=== PATIENT | male | born 1960 | race Caucasian/White ===

== ENCOUNTER 2020-08-01 09:50 | Day surgery (SDC) | payer BC, SELFPAY ==
[2020-08-01] VITALS (10 sets, daily range): BP systolic 120–144; BP diastolic 78–103; PULSE 70–113; RESP 12–20; TEMP 36.3–37.3; O2SAT 95–100
[2020-08-01] MEDS: NITROGLYCERIN SL 0.4 MG TABLET SUBLINGUAL (10:36)
[2020-08-01] MEDS: SODIUM CHLORIDE 0.9% IV 1,000 ML 999 ML IV CONT (10:36)
[2020-08-01] MEDS: HYOSCYAMINE SULFATE 0.125 MG TABLET PO (10:39)
[2020-08-01] MEDS: GLUCAGON FOR INJ 1 MG VIAL IV PUSH (10:39)
--- NOTE | 2020-08-01 10:41 | ED.GENADULT ---
HPI - General Adult General Chief complaint: Unspecified Stated complaint: FB GI Time Seen by Provider: 08/01/20 10:06 Source: patient Mode of arrival: ambulatory Limitations: no limitations History of Present Illness HPI narrative: Patient is a 60-year-old male who presents to emergency department for evaluation of concern for esophageal foreign body patient notes last night he was eating dinner described as chicken and kale when he felt as though the food became lodged and has since had difficulty tolerating liquids including his saliva. Patient denies similar occurrence in the past or any pain or recent illness. On arrival patient is in the room in no distress. Patient is not taken anything for his symptoms Related Data Home Medications Medication Instructions Recorded Confirmed acamprosate 333 mg PO BID 08/01/20 08/01/20 lisinopril 08/01/20 meloxicam 08/01/20 naltrexone mg 08/01/20 simvastatin mg 08/01/20 Allergies Allergy/AdvReac Type Severity Reaction Status Date / Time No Known Allergies Allergy Verified 08/01/20 10:01 Review of Systems Review of Systems: All systems reviewed & are unremarkable except as noted in HPI and below PMFSH Past Medical History Medical History (Updated 08/01/20 @ 11:55 by Camilo Martin PA-C) Essential hypertension Hyperlipidemia Social History Social History (Updated 08/01/20 @ 10:42 by Camilo Martin PA-C) Alcohol intake: current Gender identity (if verbalized by the patient): Male Exam Narrative: Exam Narrative: GENERAL: Well-appearing, well-nourished, and in no acute distress. HEAD: Normocephalic, atraumatic. EYES: PERRLA and EOMI. ENT: Nares clear, no rhinorrhea or epistaxis. Mucous membranes moist. CHEST: Clear to auscultation. No respiratory distress. No wheezes rales or rhonchi HEART: Regular rate and rhythm. No murmur heard. Normal peripheral pulses. ABDOMEN: Soft, nontender, nondistended EXTREMITIES: Normal range of motion. No edema. SKIN: Warm, dry, no rash. NEURO: No focal deficits. Alert and oriented x3. PSYCH: Normal mood and affect. Course Course Emergency Course: Patient in the room no distress aware of case findings treatment plan diagnosis attempts were made to medically help pass the bolus were unable to do so patient will be at this time taken to the GI lab for upper endoscopy by Dr. Pierre Consultations Consultation #1: Spoke with Dr. Pierre who will take the patient to the GI Lab Date: 08/01/20 Time: 11:54 Vital Signs Vital signs: Vital Signs Temperature 97.3 F L 08/01/20 09:57 Pulse Rate 112 H 08/01/20 09:57 Respiratory Rate 18 08/01/20 09:57 Blood Pressure 143/103 H 08/01/20 09:57 Pulse Oximetry 97 08/01/20 09:57 Temperature 97.3 F L 08/01/20 09:57 Pulse Rate 100 08/01/20 11:15 Respiratory Rate 15 08/01/20 11:15 Blood Pressure 140/89 08/01/20 11:15 Pulse Oximetry 95 08/01/20 11:15 Medical Decision Making [facility] Narrative Medical decision making narrative: Patient in the room hemodynamically stable ABCs intact afebrile nontoxic-appearing evaluated in the emergency department patient will be taken to the GI lab at this time for upper endoscopy Vital Signs Vital Signs: Vital Signs Temperature 97.3 F L 08/01/20 09:57 Pulse Rate 112 H 08/01/20 09:57 Respiratory Rate 18 08/01/20 09:57 Blood Pressure 143/103 H 08/01/20 09:57 Pulse Oximetry 97 08/01/20 09:57 Temperature 97.3 F L 08/01/20 09:57 Pulse Rate 100 08/01/20 11:15 Respiratory Rate 15 08/01/20 11:15 Blood Pressure 140/89 08/01/20 11:15 Pulse Oximetry 95 08/01/20 11:15 Lab Data Result diagrams: 08/01/20 10:31 08/01/20 10:31 Labs: Lab Results 08/01/20 08/01/20 Range/Units 10:31 10:31 WBC 8.1 (4.5-10.0) K/mm3 RBC 5.04 (4.6-6.20) M/mm3 Hgb 16.0 (14.0-18.0) g/dL Hct 46.4 (42.0-52.0) % MCV 92.1 (80-100) fl MCH 31.7 (26-34) pg
[2020-08-01 10:43] LABS: Basophils Percent Auto 0.4 % (0.2-1.2); Eosinophils Percent Auto 0.5 % (0-4.4); Hematocrit 46.4 % (42.0-52.0); Immature Granulocyte Absolute 0.03 K/mm3 (0.00-0.031); Immature Granulocyte Percent A 0.4 % (0-0.5); Lymphocytes Absolute Auto 0.96 K/mm3 (0.9-3.2); Lymphocytes Percent Auto 11.9 % (18.3-44.2); Mean Corpuscular HGB Conc 34.5 g/dl (32-36); Mean Corpuscular Hemoglobin 31.7 pg (26-34); Mean Corpuscular Volume 92.1 fl (80-100); Mean Platelet Volume 9.2 fl (7.4-10.4); Monocytes Absolute Auto 0.6 K/mm3 (0.1-0.6); Monocytes Percent Auto 7.7 % (2.6-8.5); Neutrophils Absolute Auto 6.4 K/mm3 (1.3-6.7); Neutrophils Percent Auto 79.1 % (45.5-73.1); Platelet Count Result 195 k/mm3 (150-375); Red Blood Count 5.04 M/mm3 (4.6-6.20); Red Cell Distribution Width 13.2 % (11.5-14.5); White Blood Count 8.1 K/mm3 (4.5-10.0)
[2020-08-01 10:53] LABS: Anion Gap 10 mmol/L (8-16); Blood Urea Nitrogen 21 mg/dL (9-20); Calcium 9.9 mg/dL (8.4-10.2); Carbon Dioxide 27 mmol/L (22-30); Chloride 101 mmol/L (98-107); Estimated CRCL calculation 110 ml/min; Estimated Glomerular Filt Rate > 60; Glucose 101 mg/dL (75-110); Potassium 4.1 mmol/L (3.4-5.0); Sodium 138 mmol/L (137-145)
[2020-08-01] MEDS: LACTATED RINGERS 1,000 ML 150 ML IV CONT (12:39)
--- NOTE | 2020-08-01 13:18 | WPDANESEPPF ---
Anes - Initial Pre Proc Eval Procedure: Operation Date: 08/01/20 13:15 Proposed Procedures p Esophagogastroduodenoscopy - Benedict Vann MD Date/Time: 08/01/20 13:18 Surgeon: Benedict Vann MD Pre Op Diagnosis: FB GI Patient Data Age: 60 Gender: M Height: 5 ft 9 in Weight: 89.3 kg Last Vital Signs Temp 99.1 F 08/01/20 12:42 Pulse 98 08/01/20 12:42 Resp 17 08/01/20 12:42 BP 140/85 08/01/20 12:42 Pulse Ox 100 08/01/20 12:42 Allergies Allergy/AdvReac Type Severity Reaction Status Date / Time No Known Allergies Allergy Verified 08/01/20 12:40 Home Medications Medication Instructions Recorded Confirmed Type acamprosate 333 mg PO BID 08/01/20 08/01/20 History lisinopril 20 mg PO DAILY 08/01/20 08/01/20 History meloxicam 15 mg PO DAILY 08/01/20 08/01/20 History naltrexone 50 mg PO DAILY 08/01/20 08/01/20 History simvastatin 20 mg PO DAILY 08/01/20 08/01/20 History Laboratory Tests 08/01/20 08/01/20 10:31 10:31 WBC 8.1 K/mm3 K/mm3 (4.5-10.0) RBC 5.04 M/mm3 M/mm3 (4.6-6.20) Hgb 16.0 g/dL g/dL (14.0-18.0) Hct 46.4 % % (42.0-52.0) MCV 92.1 fl fl (80-100) MCH 31.7 pg pg (26-34) MCHC 34.5 g/dl g/dl (32-36) RDW 13.2 % % (11.5-14.5) Plt Count 195 k/mm3 k/mm3 (150-375) MPV 9.2 fl fl (7.4-10.4) Immature Gran % (Auto) 0.4 % % (0-0.5) Neut % (Auto) 79.1 % H % (45.5-73.1) Lymph % (Auto) 11.9 % L % (18.3-44.2) [place] % (Auto) 7.7 % % (2.6-8.5) Eos % (Auto) 0.5 % % (0-4.4) Baso % (Auto) 0.4 % % (0.2-1.2) Lymph # (Auto) 0.96 K/mm3 K/mm3 (0.9-3.2) [place] # (Auto) 0.6 K/mm3 K/mm3 (0.1-0.6) Eos # (Auto) 0.0 K/mm3 K/mm3 (0-0.3) Baso # (Auto) 0.0 K/mm3 K/mm3 (0.0-0.1) Abs Immat Gran (auto) 0.03 K/mm3 K/mm3 (0.00-0.031) Absolute Neuts (auto) 6.4 K/mm3 K/mm3 (1.3-6.7) Absolute Nucleated RBC 0.0 K/mm3 K/mm3 (0.0-0.012) Nucleated RBC % 0.0 % % (0.0-0.2) Sodium 138 mmol/L mmol/L (137-145) Potassium 4.1 mmol/L mmol/L (3.4-5.0) Chloride 101 mmol/L mmol/L (98-107) Carbon Dioxide 27 mmol/L mmol/L (22-30) Anion Gap 10 mmol/L mmol/L (8-16) BUN 21 mg/dL H mg/dL (9-20) Creatinine 0.60 mg/dL L mg/dL (0.7-1.3) Estim Creat Clear Calc 110 ml/min ml/min Estimated GFR > 60 (59 - ) Glucose 101 mg/dL mg/dL (75-110) Calcium 9.9 mg/dL mg/dL (8.4-10.2) Patient hx anesthesia problems: none Family hx anesthesia problems: none [facility] Past Medical History Medical History (Updated 08/01/20 @ 11:55 by Camilo Martin PA-C) Essential hypertension Hyperlipidemia Social History Social History (Updated 08/01/20 @ 10:42 by Camilo Martin PA-C) Alcohol intake: current Gender identity (if verbalized by the patient): Male Anes - Eval Final PreProcedure Day of Procedure 01/06/21 13:18 Patient weight: overweight Heart: regular rate and rhythm Lungs: clear to auscultation Airway: Mallampati scale class III Neurological: alert and oriented Last oral intake: >/= 8 hours ASA classification: II Emergent: yes Anesthetic plan: proceed Anesthesia type and monitoring: general GIVS and standard monitoring Informed Consent: The patient's anesthetic plan and its attendant risks and benefits were discussed with the patient/family/POA. Questions were solicited and answers provided to the satisfaction of the patient/family/POA.
--- NOTE | 2020-08-01 13:35 | PM.HPGS ---
History of Present Illness History of Present Illness Consent: Risks, benefits, and alternatives have been discussed and questions answered. Patient agrees to proceed with procedure. Chief complaint: FB GI Narrative: Elpidio Delgadillo is a 60 year old male here for food bolus after eating dinner last night and came to ER, never had EGD. Had episodes of dysphagia before, he is not taking ppi Review of Systems Constitutional: Constitutional: Denies headache(s) and Denies weakness Eyes: Eyes: Denies blurry vision ENT: Reports Normal hearing present, Denies headache(s) and Denies neck pain Cardiovascular: Cardiovascular: Denies chest pain and Denies dyspnea Respiratory: Respiratory: Denies dyspnea Gastrointestinal: Gastrointestinal: Reports no additional gastrointestinal complaints Genitourinary: Genitourinary: Denies dysuria Musculoskeletal: Musculoskeletal: Denies neck pain Integumentary/Breasts: Skin/Breast: Denies dry skin Neurologic: Reports Normal hearing present, Denies headache(s) and Denies weakness Psychiatric: Psychiatric: Denies anxiety Endocrine: Endocrine: Denies change in body appearance Hematologic/Lymphatic: Hematologic/Lymphatic: Denies easy bleeding Allergic/Immunologic: Allergic/Immunologic: Denies urticaria PMFSH Past Medical History Medical History (Updated 08/01/20 @ 11:55 by Camilo Martin PA-C) Essential hypertension Hyperlipidemia Social History Social History (Updated 08/01/20 @ 10:42 by Camilo Martin PA-C) Alcohol intake: current Gender identity (if verbalized by the patient): Male Meds Home Medications and Allergies Home Medications Medication Instructions Recorded Confirmed Type acamprosate 333 mg PO BID 08/01/20 08/01/20 History lisinopril 20 mg PO DAILY 08/01/20 08/01/20 History meloxicam 15 mg PO DAILY 08/01/20 08/01/20 History naltrexone 50 mg PO DAILY 08/01/20 08/01/20 History simvastatin 20 mg PO DAILY 08/01/20 08/01/20 History Allergies Allergy/AdvReac Type Severity Reaction Status Date / Time No Known Allergies Allergy Verified 08/01/20 12:40 Vital Signs Vital Signs - 24 hr 08/01/20 09:57 08/01/20 10:06 08/01/20 10:36 Temperature 97.3 F L Pulse Rate 112 H 108 H 113 H Respiratory Rate 18 12 Blood Pressure 143/103 H 144/84 H Pulse Oximetry 97 96 01/06/21 11:15 08/01/20 12:02 08/01/20 12:29 Temperature Pulse Rate 100 105 H 99 Respiratory Rate 15 16 15 Blood Pressure 140/89 127/94 H 139/93 H Pulse Oximetry 95 96 97 08/01/20 12:42 Temperature 99.1 F Pulse Rate 98 Respiratory Rate 17 Blood Pressure 140/85 Pulse Oximetry 100 Exam Const: General: comfortable and no acute distress HENMT: General nose exam: Normal nares present Eyes: General: appearance normal, both eyes and all related structures Neck: Neck: no JVD Resp: Auscultation: clear to auscultation bilaterally Cardio: Rate: regular rate Rhythm: regular rhythm GI: Inspection: non-distended GI Palp: Yes Soft to palpation Skin: General skin exam: normal color Neuro: General: gait normal Speech: normal speech Extrem: General: normal to inspection Psych: Mental Status: mental status grossly normal Assessment and Plan Assessment and plan (1) Esophageal foreign body: Code(s): T18.108A - Unspecified foreign body in esophagus causing other injury, initial encounter Status: Acute Assessment and Plan: will proceed with urgent EGD, medical treatment in ER did not work, still unable to swallow
== END 2020-08-01 15:41 | disposition home or self-care (01) ==
LOC: ANHED 12:01 → ANHENDO 12:04
PROVIDERS: Emergency Medicine Emergency Medical Services; Emergency Provider Emergency Medicine; PCP Family Medicine Adolescent Medicine; Visit Provider Internal Medicine Gastroenterology
PROC: 0DJ08ZZ Inspection of Upper Intestinal Tract, Via Natural or Artificial Opening Endoscopic (ICD-10-PCS; CPT 43235; principal; 2020-08-01 13:15)
DX: T18.128A Food in esophagus causing other injury, initial encounter (principal); R13.19 Other dysphagia; K22.2 Esophageal obstruction; K44.9 Diaphragmatic hernia without obstruction or gangrene; K29.80 Duodenitis without bleeding; I10 Essential (primary) hypertension; E78.5 Hyperlipidemia, unspecified
CPT/HCPCS: 43247; 43239; 36415; 80048; 85025; 88305; 96361; 96374; 99285; A9270; J1610; J2001; J2405; J2704; J7030; J7120

== ENCOUNTER → 2020-08-21 10:28 | Outpatient (CLI) | payer BC, SELFPAY ==
--- NOTE | ~2020-08-21 | XR_ITS ---
EXAMINATION: XR cervical spine 4-5V EXAM DATE: 08/21/2020 10:58 INDICATION: Neck pain, prior cervical fusion. TECHNIQUE: Cervical spine frontal, lateral, lateral swimmers, and open-mouth odontoid projections. There is no prior study for comparison. FINDINGS: Cervical fusion C5-6 and 6-7 with interbody devices. There is moderate disc disease at C4- 5, mild at C3-4. Moderate sized anterior endplate osteophytes C3-4 and 4-5. There is advanced upper c ervical facet arthropathy and lower cervical uncovertebral joint disease. Lung apices are clear. Prev ertebral soft tissue and pre-dens space are within normal limits. There is 2 mm anterolisthesis C3 on C4. The odontoid process is intact. The lateral masses of C1 line up with C2. IMPRESSION: 1. Cervical interbody fusion C5-7. 2. Advanced cervical arthropathy. Reviewed, dictated and finalized at location A. R SCHEDULE CLERK
== END ==
PROVIDERS: PCP Family Medicine Adolescent Medicine; Visit Provider Family Medicine Adolescent Medicine
DX: M54.2 Cervicalgia (principal); Z98.1 Arthrodesis status
CPT/HCPCS: 72050

== ENCOUNTER → 2020-09-14 02:22 | Outpatient (CLI) | payer BC, SELFPAY ==
[2020-09-14 21:58] LABS: SARS-CoV-2 RNA PCR Negative
== END ==
PROVIDERS: PCP Family Medicine Adolescent Medicine; Visit Provider Internal Medicine Gastroenterology
DX: Z01.812 Encounter for preprocedural laboratory examination (principal); Z20.822 Contact with and (suspected) exposure to COVID-19
CPT/HCPCS: C9803; U0003; U0005

== ENCOUNTER 2020-09-17 00:28 | Day surgery (SDC) | payer BC, SELFPAY ==
[2020-08-27 08:50] VITALS: BMI 28.1
--- NOTE | 2020-09-14 09:28 | P.PNAN_ITS ---
Anes - Initial Pre Proc Eval Procedure: Operation Date: 09/17/20 07:30 Proposed Procedures p Esophagogastroduodenoscopy - Benedict Vann MD Date/Time: 09/14/20 09:28 Surgeon: Benedict Vann MD Pre Op Diagnosis: Dysphagia Patient Data Age: 60 Gender: M Height: 1.73 m Weight: 84 kg Allergies Allergy/AdvReac Type Severity Reaction Status Date / Time No Known Allergies Allergy Verified 09/17/20 06:15 Home Medications Medication Instructions Recorded Confirmed Type lisinopril 20 mg PO DAILY 08/01/20 08/27/20 History meloxicam 15 mg PO DAILY 08/01/20 08/27/20 History omeprazole 40 mg capsule,delayed 40 mg PO DAILY #30 cap 08/01/20 08/27/20 Rx release simvastatin 20 mg PO DAILY 08/01/20 08/27/20 History Patient hx anesthesia problems: none Family hx anesthesia problems: none [facility] Past Medical History Medical History (Updated 08/01/20 @ 11:55 by Camilo Martin PA-C) Essential hypertension Hyperlipidemia Surgical History Surgical History (Updated 09/14/20 @ 09:29 by Iker Doss DO) History of fusion of cervical spine C6-7 History of total knee replacement Social History Social History (Updated 08/01/20 @ 10:42 by Camilo Martin PA-C) Smoking packs per day: 1 Smoking cigarettes per day: 20.0 Years smoked: 10 Smoking pack-years: 10.00 Tobacco type: cigarettes Alcohol intake: current Drinks per week: 12 Alcohol use details: BEER Substance use: never Substance use type: does not use Living arrangements: with family Gender identity (if verbalized by the patient): Male Spiritual care concerns: No Anes - Eval Final PreProcedure Day of Procedure 09/14/20 09:28 Patient weight: overweight Heart: regular rate and rhythm Lungs: clear to auscultation and normal air movement Airway: Mallampati scale class II Neurological: alert and oriented Last oral intake: >/= 8 hours ASA classification: III Emergent: no Anesthetic plan: proceed Anesthesia type and monitoring: general GIVS and standard monitoring Informed Consent: The patient's anesthetic plan and its attendant risks and benefits were discussed with the patient/family/POA. Questions were solicited and answers provided to the satisfaction of the patient/family/POA.
[2020-09-17 06:16] VITALS: BP 130/87; PULSE 86; RESP 18; TEMP 36.6; O2SAT 99
[2020-09-17] MEDS: LACTATED RINGERS 1,000 ML 150 ML IV CONT (06:24)
--- NOTE | 2020-09-17 07:30 | PM.HPGS ---
History of Present Illness History of Present Illness Consent: Risks, benefits, and alternatives have been discussed and questions answered. Patient agrees to proceed with procedure. Chief complaint: Dysphagia Narrative: Elpidio Delgadillo is a 60 year old male with food bolus that required EGD last month, now on omeprazole daily Review of Systems Constitutional: Constitutional: Denies headache(s) and Denies weakness Eyes: Eyes: Denies blurry vision ENT: Reports Normal hearing present, Denies headache(s) and Denies neck pain Cardiovascular: Cardiovascular: Denies chest pain and Denies dyspnea Respiratory: Respiratory: Denies dyspnea Gastrointestinal: Gastrointestinal: Reports no additional gastrointestinal complaints Genitourinary: Genitourinary: Denies dysuria Musculoskeletal: Musculoskeletal: Denies neck pain Integumentary/Breasts: Skin/Breast: Denies dry skin Neurologic: Reports Normal hearing present, Denies headache(s) and Denies weakness Psychiatric: Psychiatric: Denies anxiety Endocrine: Endocrine: Denies change in body appearance Hematologic/Lymphatic: Hematologic/Lymphatic: Denies easy bleeding Allergic/Immunologic: Allergic/Immunologic: Denies urticaria PMFSH Past Medical History Medical History (Updated 09/17/20 @ 07:30 by Benedict Vann MD) Dysphagia Essential hypertension GERD (gastroesophageal reflux disease) Hyperlipidemia Surgical History Surgical History (Updated 09/14/20 @ 09:29 by Iker Doss DO) History of fusion of cervical spine C6-7 History of total knee replacement Social History Social History (Updated 08/01/20 @ 10:42 by Camilo Martin PA-C) Smoking packs per day: 1 Smoking cigarettes per day: 20.0 Years smoked: 10 Smoking pack-years: 10.00 Tobacco type: cigarettes Alcohol intake: current Drinks per week: 12 Alcohol use details: BEER Substance use: never Substance use type: does not use Living arrangements: with family Gender identity (if verbalized by the patient): Male Spiritual care concerns: No Meds Home Medications and Allergies Home Medications Medication Instructions Recorded Confirmed Type lisinopril 20 mg PO DAILY 08/01/20 08/27/20 History meloxicam 15 mg PO DAILY 08/01/20 08/27/20 History omeprazole 40 mg capsule,delayed 40 mg PO DAILY #30 cap 08/01/20 08/27/20 Rx release simvastatin 20 mg PO DAILY 08/01/20 08/27/20 History Allergies Allergy/AdvReac Type Severity Reaction Status Date / Time No Known Allergies Allergy Verified 09/17/20 06:15 Vital Signs Vital Signs - 24 hr 09/17/20 06:16 Temperature 97.8 F Pulse Rate 86 Respiratory Rate 18 Blood Pressure 130/87 Pulse Oximetry 99 Exam Const: General: comfortable and no acute distress HENMT: General nose exam: Normal nares present Eyes: General: appearance normal, both eyes and all related structures Neck: Neck: no JVD Resp: Auscultation: clear to auscultation bilaterally Cardio: Rate: regular rate Rhythm: regular rhythm GI: Inspection: non-distended GI Palp: Yes Soft to palpation Skin: General skin exam: normal color Neuro: General: gait normal Speech: normal speech Extrem: General: normal to inspection Psych: Mental Status: mental status grossly normal Assessment and Plan Assessment and plan (1) Dysphagia: Code(s): R13.10 - Dysphagia, unspecified Status: Acute Assessment and Plan: better now, assess with egd and consider dilation based on findings (2) GERD (gastroesophageal reflux disease): Code(s): K21.9 - Gastro-esophageal reflux disease without esophagitis Status: Acute
[2020-09-17 07:43] VITALS: BP 129/93; PULSE 91; RESP 13; O2SAT 97
[2020-09-17 07:53] VITALS: BP 126/89; PULSE 79; RESP 12; O2SAT 98
[2020-09-17 08:03] VITALS: BP 129/92; PULSE 80; RESP 21; O2SAT 97
== END 2020-09-17 08:11 | disposition home or self-care (01) ==
PROVIDERS: PCP Family Medicine Adolescent Medicine; Visit Provider Internal Medicine Gastroenterology
PROC: 0DJ08ZZ Inspection of Upper Intestinal Tract, Via Natural or Artificial Opening Endoscopic (ICD-10-PCS; CPT 43235; principal; 2020-09-17 07:30)
DX: R13.10 Dysphagia, unspecified (principal); K22.2 Esophageal obstruction; K21.00 Gastro-esophageal reflux disease with esophagitis, without bleeding; K44.9 Diaphragmatic hernia without obstruction or gangrene; I10 Essential (primary) hypertension; E78.5 Hyperlipidemia, unspecified; F17.210 Nicotine dependence, cigarettes, uncomplicated; Z98.1 Arthrodesis status; Z96.659 Presence of unspecified artificial knee joint
CPT/HCPCS: 43249; 43239; 88305; C1726; J2001; J2704; J7120

== ENCOUNTER 2021-02-17 17:33 | Emergency (ER) | payer BC, SELFPAY ==
--- NOTE | ~2021-02-17 | XR_ITS ---
EXAMINATION: XR finger 5th LT min 2V EXAM DATE: 02/17/2021 20:36 INDICATION: Laceration to distal end of 5th digit, no prior injury. TECHNIQUE: Left 5th finger frontal, lateral and oblique projections obtained and reviewed. There i s no prior study for comparison. FINDINGS: There are no acute left 5th finger fractures or dislocations identified. There is no subcu taneous gas. Probable laceration identified along the distal phalanx. There are no radiopaque forei gn bodies. IMPRESSION: 1. Left 5th finger exam without acute osseous findings. 2. Laceration. Reviewed, dictated and finalized at location A.
[2021-02-17 17:51] VITALS: BP 144/78; PULSE 73; RESP 20; TEMP 36.8; O2SAT 100
--- NOTE | 2021-02-17 20:35 | ED.WOUNDLAC ---
HPI - Wound/Laceration General Chief Complaint: Wound/Laceration Stated Complaint: CUT PINKIE FINGER Time Seen by Provider: 02/17/21 19:59 Source: patient Mode of arrival: ambulatory Limitations: no limitations History of Present Illness HPI narrative: This is a 60 year old male that presents to the ER for laceration to the left 5th finger sustained just prior to arrival. Reports he accidentally cut the finger using pruning raegan. Reports bleeding and pain to the area. He is not up to date on tetanus. Denies decreased ROM or numbness. Related Data Home Medications Medication Instructions Recorded Confirmed lisinopril 20 mg PO DAILY 08/01/20 08/27/20 meloxicam 15 mg PO DAILY 08/01/20 08/27/20 simvastatin 20 mg PO DAILY 08/01/20 08/27/20 Allergies Allergy/AdvReac Type Severity Reaction Status Date / Time No Known Allergies Allergy Verified 09/17/20 06:15 Review of Systems Review of Systems: Narrative: CONSTITUTIONAL: Denies fever SKIN: Reports laceration MUSCULOSKELETAL: Denies joint pain, or myalgia. NEUROLOGIC: Denies numbness All systems reviewed & are unremarkable except as noted in HPI and below PMFSH Past Medical History Medical History (Updated 02/17/21 @ 22:20 by Rosemary Myles PA-C) Dysphagia Essential hypertension GERD (gastroesophageal reflux disease) Hyperlipidemia Surgical History Surgical History (Updated 09/14/20 @ 09:29 by Iker Doss DO) History of fusion of cervical spine C6-7 History of total knee replacement Social History Social History (Updated 08/01/20 @ 10:42 by Camilo Martin PA-C) Smoking packs per day: 1 Smoking cigarettes per day: 20.0 Years smoked: 10 Smoking pack-years: 10.00 Tobacco type: cigarettes Alcohol intake: current Drinks per week: 12 Alcohol use details: BEER Substance use: never Substance use type: does not use Gender identity (if verbalized by the patient): Male Spiritual care concerns: No Exam Narrative: Exam Narrative: GENERAL: Well-appearing, well-nourished, and in no acute distress. HEAD: Normocephalic, atraumatic. EYES: EOMI. EXTREMITIES: Normal range of motion. No edema. Left 5th finger with 1.5cm flap laceration into subcutaneous tissue to the distal phalanx SKIN: Warm, dry, no rash. NEURO: No focal deficits. Alert and oriented x3. PSYCH: Normal mood and affect Course Vital Signs Vital signs: Vital Signs Temperature 98.2 F 02/17/21 17:51 Pulse Rate 73 02/17/21 17:51 Respiratory Rate 20 02/17/21 17:51 Blood Pressure 144/78 H 02/17/21 17:51 Pulse Oximetry 100 02/17/21 17:51 Temperature 98.1 F 02/17/21 21:40 Pulse Rate 81 02/17/21 21:40 Respiratory Rate 19 02/17/21 21:40 Blood Pressure 139/86 02/17/21 21:40 Pulse Oximetry 100 02/17/21 21:40 Procedures Laceration Laceration 1: Date: 02/17/21 Time: 22:18 Site: hand Side (If applicable): left Size (cm): 1.5 Description: flap Depth: simple, single layer Local Anesthetic: lidocaine 1% Amount of anesthesia used (mL): 3 Pre-repair: irrigated ====== Skin Level ====== Skin layer closed with: nylon Size (cm): 5-0 Number of sutures: 2 Technique: simple, interrupted ====== Subcutaneous Layer ====== ====== Muscle Layer ====== ====== Tendon Layer ====== MDM - Wound/Laceration MDM Narrative Medical decision making narrative: Patient presents to the emergency department for laceration to the left fifth finger sustained just prior to arrival. Left fifth finger x-rays without acute osseous abnormalities. Patient's wound was irrigated and closed with sutures. Patient was updated on tetanus. He was educated on wound care. He is to follow-up with primary care doctor. He was given warnings to return to the ER Imaging Data Radiologist's impression: ITS Impressions Finger X-Ray 02/17/21 20:57 I
[2021-02-17 21:40] VITALS: BP 139/86; PULSE 81; RESP 19; TEMP 36.7; O2SAT 100
[2021-02-17] MEDS: TETANUS,DIPHTHERIA,AC PERTUSSIS ADULT (0.5 ML) BOOSTRIX IM (21:50)
== END 2021-02-17 22:46 | disposition home or self-care (01) ==
PROVIDERS: Emergency Provider Emergency Medicine; PCP Family Medicine Adolescent Medicine
DX: S61.217A Laceration without foreign body of left little finger without damage to nail, initial encounter (principal); I10 Essential (primary) hypertension; K21.9 Gastro-esophageal reflux disease without esophagitis; E78.5 Hyperlipidemia, unspecified; Z23 Encounter for immunization; Z98.1 Arthrodesis status; Z96.659 Presence of unspecified artificial knee joint; F17.210 Nicotine dependence, cigarettes, uncomplicated; W27.1XXA Contact with garden tool, initial encounter; Y93.H2 Activity, gardening and landscaping
CPT/HCPCS: 12001; 73140; 90471; 90715; 99283

== ENCOUNTER → 2022-06-10 08:41 | Outpatient (CLI) | payer OTHER, SELFPAY ==
--- NOTE | ~2022-06-10 | XR_ITS ---
EXAMINATION: XR chest 2V DATE: 06/10/2022 08:58 INDICATION: Contact with and suspected exposure to asbestos. TECHNIQUE: Frontal and lateral views of the chest were obtained on 3 radiographs. COMPARISON: None. FINDINGS: The chest demonstrates clear lungs without pneumonia, pleural effusion, or pneumothorax. Th e heart size is normal. There is mild chronic anterior wedging of multiple midthoracic vertebral bodi es. IMPRESSION: 1. No acute cardiopulmonary disease. Reviewed, dictated and finalized at location A. T ATTENDANT
== END ==
PROVIDERS: PCP Family Medicine Adolescent Medicine; Visit Provider Physician Assistant
DX: Z77.090 Contact with and (suspected) exposure to asbestos (principal)
CPT/HCPCS: 71046

== ENCOUNTER 2023-07-08 07:34 | Outpatient (CLI) | payer OTHER, SELFPAY ==
--- NOTE | 2023-07-08 07:38 | ECHO_ITS ---
Patient Info Name: Elpidio Delgadillo Age: 63 years : 1960 Gender: Male Ht: 69 in Wt: 186 lbs BSA: 2.04 m2 HR: 71 bpm BP: 110 / 70 mmHg Technical Quality: Good Exam Date: 07/08/2023 7:45 AM Exam Location: Echo Lab Patient Status: Outpatient Admit Date: 07/08/2023 Staff Ordering Physician: Jennifer Sharp APRN Attending Provider: Jennifer Sharp APRN Referring Physician: Aron HOWELL; Exam Type: CA echo transthoracic complete Study Info Indications I10 - Essential (primary) hypertension I35.8 - Other nonrheumatic aortic valve disorders Summary 1. Left ventricular chamber dimension is normal. 2. Left ventricular systolic function is normal, estimated at 60-65%. 3. There is mild concentric increased left ventricular wall thickness. 4. The left ventricular diastolic function is normal. 5. E/e' 7 is not elevated. 6. Left atrial chamber dimension is mildly enlarged. 7. Right atrial chamber dimension is mildly enlarged. 8. There is moderate aortic valve sclerosis. 9. There is moderate aortic valve stenosis with a peak velocity of 281 cm/s, mean gradient of 13 mmHg, and aortic valve area of 1.2 cm2. 10. There is mild mitral valve regurgitation. 11. There is trace pulmonic regurgitation. Left Ventricle E/e' 7 is not elevated. Left ventricular chamber dimension is normal. Left ventricular systolic function is normal, estimated at 60-65%. There is mild concentric increased left ventricular wall thickness. The left ventricular diastolic function is normal. Right Ventricle Right ventricular systolic function is tati and with normal TAPSE 2.2 cm. Right ventricular chamber dimension is normal. Left Atria Left atrial chamber dimension is mildly enlarged. Right Atria Right atrial chamber dimension is mildly enlarged. Aortic Valve The aortic valve is trileaflet. There is moderate aortic valve sclerosis. There is moderate aortic valve stenosis with a peak velocity of 281 cm/s, mean gradient of 13 mmHg, and aortic valve area of 1.2 cm2. There is no aortic valve regurgitation. Pulmonic Valve There is trace pulmonic regurgitation. Mitral Valve There is no mitral valve stenosis. There is mild mitral valve regurgitation. Tricuspid Valve There is no tricuspid valve regurgitation. Pericardium/Pleural There is no pericardial effusion. Inferior Vena Cava Normal inferior vena cava with >50% collapse upon inspiration consistent with normal right atrial pressure, 5 mmHg. Aorta The aortic root size at the sinus of Valsalva is normal. Left Ventricular Outflow Tract Name Value Normal LVOT 2D LVOT Diameter 2.2 cm LVOT Doppler LVOT Peak Gradient 3 mmHg LVOT Mean Gradient 1 mmHg LVOT VTI 18 cm LVOT VTI/AV VTI Ratio 0.3 LVOT Stroke Volume 66 ml LVOT CO 4.6 l/min LVOT CI 2.3 l/min/m2 Pulmonic Valve Name Value Normal
== END 2023-07-08 07:35 | disposition home or self-care (01) ==
PROVIDERS: PCP Family Medicine Adolescent Medicine; Visit Provider Nurse Practitioner Family
DX: I08.3 Combined rheumatic disorders of mitral, aortic and tricuspid valves (principal)
CPT/HCPCS: 93306

== ENCOUNTER 2023-08-06 08:43 | Observation (INO) | payer OTHER, SELFPAY ==
[2023-08-06] VITALS (76 sets, daily range): BP systolic 100–130; BP diastolic 65–105; PULSE 64–142; RESP 12–24; TEMP 36.6–36.9; O2SAT 92–100; BMI 26.6
--- NOTE | ~2023-08-06 | CT_ITS ---
EXAMINATION: CTA chest PE protocol DATE: 08/06/2023 10:24 INDICATION: Chest pain, tachycardia, dizziness. Positive d-dimer. TECHNIQUE: Computed tomography angiography (CTA) of the chest was performed with 100 mL Omnipaque-350 intravenous contrast timed to evaluate the pulmonary arteries. Coronal maximum intensity projection 3D-reconstructions were created by the technologist. Automated exposure control and iterative reconst ruction technique were employed. Exam dose: 651.23 mGy-cm total exam DLP. COMPARISON: 06/10/2022 2 view chest FINDINGS: There is diagnostic contrast enhancement of the pulmonary arteries and no evidence of pulmo nary embolism. No thoracic aortic aneurysm or dissection. There is some calcification at the aortic valve. Coronary artery calcification. Heart size is within normal range. No pericardial effusion. No hilar or mediastinal mass lesion or lymphadenopathy. No pleural effusion. Mild bilateral lower lobe atelectasis. No pulmonary consolidation or suspicious pulmonary mass lesion is evident. Normal morphology of the adrenal glands. Severe degenerative disc disease in the lower cervical spine. Diffuse idiopathic skeletal hyperostosi s of the thoracic spine. Degenerative spurring of the lumbar spine. IMPRESSION: No evidence of pulmonary embolism Reviewed, dictated and finalized at Location A. Reviewed, dictated and finalized at location L. GATIONIST
--- NOTE | ~2023-08-06 | XR_ITS ---
XR chest 2V DATE: 08/06/2023 10:27 INDICATION: Chest pain. Dizziness. TECHNIQUE: AP and lateral views COMPARISON: 06/10/2022 2 view chest FINDINGS: Normal heart size. No hilar or mediastinal enlargement. No pulmonary infiltrate or consolid ation, pleural effusion or pulmonary vascular congestion or pneumothorax is detected. Degenerative spurring of the thoracic spine. IMPRESSION: No active cardiopulmonary disease Reviewed, dictated and finalized at location L. FITTER
--- NOTE | ~2023-08-06 | US_ITS ---
EXAMINATION: US carotid duplex BI DATE: 08/07/2023 10:04 INDICATION: Presyncope. Carotid atherosclerosis. TECHNIQUE: Grayscale, color Doppler, and pulsed Doppler images of the cervical carotid arteries were obtained. The degree of vessel stenosis is placed in one of the following categories: normal, <50%, 5 0-69%, >=70% but less than near-occlusion, near-occlusion, or total occlusion. Note that percent sten osis relative to normal distal artery lumen diameter is indirectly measured from velocity measurement s as described by Yao, et al. Radiology 2003; 229:340-346. COMPARISON: None. FINDINGS: RIGHT: The right common carotid artery (CCA) peak systolic velocity (PSV) is 87 cm/s. The right internal car otid artery (ICA) PSV is 94 cm/s. The right ICA end-diastolic velocity (EDV) is 31 cm/s. The right IC A/CCA PSV ratio is 1.1. Grayscale and color Doppler images yield an estimate of <50% diameter reducti on from plaque in the ICA. The external carotid artery (ECA) PSV is 82 cm/s. There is antegrade flow in the right vertebral artery. LEFT: The left CCA PSV is 129 cm/s. The left ICA PSV is 74 cm/s. The left ICA EDV is 28 cm/s. The left ICA/ CCA PSV ratio is 0.6. Grayscale and color Doppler images yield an estimate of <50% diameter reduction from plaque in the ICA. The ECA PSV is 63 cm/s. There is antegrade flow in the left vertebral artery . IMPRESSION: 1. <50% stenosis in the right internal carotid artery. 2. <50% stenosis in the left internal carotid artery. Reviewed, dictated and finalized at location A. EATION MANAGER
--- NOTE | ~2023-08-06 | CT_ITS ---
EXAMINATION: CT brain wo con DATE: 08/06/2023 10:22 INDICATION: Fall. Head injury. Dizziness. Facial injury. TECHNIQUE: Computed tomography (CT) of the head was performed without intravenous contrast. The mA wa s adjusted according to patient size. Iterative reconstruction technique was employed. Exam dose: 68 1.00 mGy-cm total exam DLP. COMPARISON: None FINDINGS: No intracranial mass lesion or hemorrhage or cerebrovascular accident, midline shift or mas s effect. Normal ventricular size. Mild cerebral atherosclerotic calcification. No subdural or epidural hematoma. Minimal posterior left maxillary sinus mucoperiosteal thickening. The included paranasal sinuses and mastoid air cells are otherwise unremarkable. Bilateral nasal plate fractures. No fracture or bone destruction of the cranial vault. IMPRESSION: Bilateral nasal plate fractures; no skull fracture or acute intracranial finding Reviewed, dictated and finalized at Location A. Reviewed, dictated and finalized at location L. CONSULTANT IMPRESSION: Bilateral nasal plate fractures; no skull fracture or acute intrac ranial finding
--- NOTE | ~2023-08-06 | CT_ITS ---
EXAMINATION: CT facial & cervical spine wo DATE: 08/06/2023 10:22 INDICATION: Head injury. TECHNIQUE: Computed tomography (CT) of the maxillofacial region and cervical spine was performed with out intravenous contrast. Automated exposure control and iterative reconstruction technique were empl oyed. The dose-length product was 526.15 mGy-cm. COMPARISON: None FINDINGS: MAXILLOFACIAL CT: There is leftward deviation of the nasal septum. There are fractures of the nasal septum, nasal bones , nasal processes of maxilla. There is mild mucosal thickening in the paranasal sinuses. The orbits a re normal. CERVICAL SPINE CT: There is a 19 x 17 mm subcutaneous mass with fat stranding in the posterior neck, which may be a seba ceous cyst with inflammation or a hematoma. There is 9 degrees dextrocurvature of cervical spine. Jaswant tebral body heights are normal. There is mildly decreased disc height at C3-C4 and moderately decreas ed disc height at C4-C5. There are changes of anterior fusion procedure at C5-C6 with interbody bone graft without bridging bone. There are changes of anterior fusion procedure at C6-C7 with healed brid ging interbody bone graft. The following disc levels are specifically discussed: C2-C3: There is no uncovertebral joint osteoarthritis. There is severe bilateral facet joint osteoart hritis. There is mild right neural foraminal stenosis. There is no central canal stenosis. C3-C4: There is mild right and moderate left uncovertebral joint osteoarthritis. There is severe left facet joint osteoarthritis. There is ankylosis of right facet joint with severe hypertrophy. There i s mild bilateral neural foraminal stenosis. There is mild central canal stenosis. C4-C5: There is severe bilateral uncovertebral joint osteoarthritis. There is severe bilateral facet joint osteoarthritis. There is mild right and moderate left neural foraminal stenosis. There is mild central canal stenosis. C5-C6: There is severe bilateral uncovertebral joint osteoarthritis. There is mild bilateral facet vale int osteoarthritis. There is moderate bilateral neural foraminal stenosis. There is mild central mateo l stenosis. C6-C7: There is moderate bilateral uncovertebral joint hypertrophy. There is mild bilateral facet michi nt osteoarthritis. There is mild right neural foraminal stenosis. There is no central canal stenosis. C7-T1: There is mild bilateral uncovertebral joint osteoarthritis. There is severe bilateral facet vale int osteoarthritis. There is mild bilateral neural foraminal stenosis. There is no central canal sten osis. IMPRESSION: 1. Fractures of the nasal bones, nasal processes of maxilla, and nasal septum. 2. Moderate cervical spondylosis. 3. Anterior fusion procedure at C5-C6 without bridging bone. Anterior fusion procedure at C6-C7 with bridging bone. Reviewed, dictated and finalized at location A. SMITTER ENGINEER IN CHARGE IMPRESSION: 1. Fractures of the nasal bones, nasal processes of maxilla, and nasal septum. 2. Moderate cervical spondylosis. 3. Anterior fusion procedure at C5-C6 without bridging bone. Anterior fusion pr ocedure at C6-C7 with bridging bone.
--- NOTE | 2023-08-06 08:51 | ECG_ITS ---
Measurements Intervals [place] Rate: 139 P: 256 TX: 161 QRS: 59 QRSD: 84 T: 58 QT: 269 QTc: 410 Interpretive Statements ATRIAL TACHYCARDIA/FLUTTER WITH RAPID VENTRICULAR RESPONSE BASELINE WANDER- V5 ABNORMAL ECG NO PREVIOUS ECG AVAILABLE FOR COMPARISON Electronically Signed On 08-06-2023 9:53:04 PRIMARY CARE MD by Patel Richard D.O.
[2023-08-06 09:00] LABS: Basophils Percent Auto 0.5 % (0.2-1.2); Eosinophils Absolute Auto 0.1 K/mm3 (0-0.3); Eosinophils Percent Auto 1.9 % (0-4.4); Hematocrit 44.8 % (42.0-52.0); Hemoglobin 14.5 g/dL (14.0-18.0); Immature Granulocyte Absolute 0.03 K/mm3 (0.00-0.031); Immature Granulocyte Percent A 0.5 % (0-0.5); Lymphocytes Absolute Auto 1.09 K/mm3 (0.9-3.2); Lymphocytes Percent Auto 19.3 % (18.3-44.2); Mean Corpuscular HGB Conc 32.4 g/dl (32-36); Mean Corpuscular Hemoglobin 29.1 pg (26-34); Mean Platelet Volume 9.5 fl (7.4-10.4); Monocytes Absolute Auto 0.4 K/mm3 (0.1-0.6); Monocytes Percent Auto 7.3 % (2.6-8.5); Neutrophils Percent Auto 70.5 % (45.5-73.1); Platelet Count Result 231 k/mm3 (150-375); Red Blood Count 4.98 M/mm3 (4.6-6.20); Red Cell Distribution Width 13.4 % (11.5-14.5); White Blood Count 5.7 K/mm3 (4.5-10.0)
[2023-08-06] MEDS: SODIUM CHLORIDE 0.9% IV 1,000 ML 999 ML IV CONT ×2 (09:02→09:54)
[2023-08-06 09:12] LABS: Alanine Aminotransferase 53 U/L (6-50); Albumin Level 4.4 g/dL (3.5-5.1); Alkaline Phosphatase 63 U/L (38-126); Anion Gap 8 mmol/L (8-16); Aspartate Amino Transferase 50 U/L (17-59); Blood Urea Nitrogen 14 mg/dL (9-20); Calcium 9.5 mg/dL (8.4-10.2); Carbon Dioxide 28 mmol/L (22-30); Chloride 101 mmol/L (98-107); Estimated CRCL calculation 92 ml/min; Estimated Glomerular Filt Rate > 60; Glucose 129 mg/dL (65-110); Potassium 3.9 mmol/L (3.4-5.0); Sodium 137 mmol/L (137-145)
--- NOTE | 2023-08-06 09:38 | PC.NURSE ---
Lab called and labs added onto orders
--- NOTE | 2023-08-06 09:47 | ED.DIZZY ---
HPI - Dizziness General Chief Complaint: Dizziness <VENESSA Sheth Last Filed: 08/06/23 19:10> Stated Complaint: DIZZY,FALL-->NOSEBLEED <VENESSA Sheth Last Filed: 08/06/23 19:10> Time Seen by Provider: 08/06/23 09:01 <VENESSA Sheth Last Filed: 08/06/23 19:10> Source: patient <VENESSA Sheth Last Filed: 08/06/23 19:10> Mode of arrival: ambulatory <VENESSA Sheth Last Filed: 08/06/23 19:10> Limitations: no limitations <VENESSA Sheth Last Filed: 08/06/23 19:10> History of Present Illness HPI Narrative: patient is a 63-year-old male who presents the ED with report of dizziness and head injury. Patient reported having 3 episodes of dizziness this morning, two which were mild and occurring with bending over. These episodes felt more like lightheadedness. He then states he had a more severe episode of dizziness while walking into his kitchen. He states it felt like the room was spinning at that time. He began to fall and attempted to hold onto a chair. He fell down with the chair, hitting his nose and face against a chair. No LOC. Denied syncope. He did sustain an epistaxis after the fall, which has since resolved. Small laceration to bridge of nose. then brought him to the ED. Patient states he developed chest pain after the fall, which has since persisted. Complains of pressure to his left lower chest. Denies difficulty breathing. Denies current dizziness. Denies vision changes, focal weakness or numbness, nausea, vomiting. Patient states he recently had an ECHO performed, unsure why or what the results were. reports he has aortic valve disease. <VENESSA Sheth Last Filed: 08/06/23 19:10> Related Data Home Medications: Home Medications Medication Instructions Recorded Confirmed cholecalciferol (vitamin D3) 25 1,000 unit PO DAILY 08/06/23 08/06/23 mcg (1,000 unit) tablet <Karolyn Osorio PA-C - Last Filed: 08/06/23 19:10> Allergies/Adverse Reactions: Allergies Allergy/AdvReac Type Severity Reaction Status Date / Time Bumble Bee Allergy Intermediate Swelling Uncoded 07/07/23 09:50 <Karolyn Osorio PA-C - Last Filed: 08/06/23 19:10> Review of Systems Review of Systems: CONSTITUTIONAL: Denies fever, chills, or sweats. ENT: See HPI CARDIOVASCULAR: See HPI. RESPIRATORY: Denies cough or dyspnea. GASTROINTESTINAL: Denies abdominal pain, nausea, vomiting MUSCULOSKELETAL: Denies back pain, extremity pain, myalgia. NEUROLOGIC: See HPI <VENESSA Sheth Last Filed: 08/06/23 19:10> All systems reviewed & are unremarkable except as noted in HPI and below <VENESSA Sheth Last Filed: 08/06/23 19:10> [facility] Past Medical History Medical History: Medical History Dysphagia Essential hypertension GERD (gastroesophageal reflux disease) Hyperlipidemia <VENESSA Sheth Last Filed: 08/06/23 19:10> Surgical History Surgical History: Surgical History History of fusion of cervical spine C6-7 History of total knee replacement <VENESSA Sheth Last Filed: 08/06/23 19:10> Family History Family History: Family History Father Acute myocardial infarction from massive [place] Mother Lung cancer Sibling Skin cancer Other Heart disease <VENESSA Sheth Last Filed: 08/06/23 19:10> Social History Social History: Social History Smoking packs per day: 1 Smoking cigarettes per day: 20.0 Years smoked: 10 Smoking pack-years: 10.00 Smoking status: Former smoker Alcohol intake: current Drinks per week: 12 [place]
[2023-08-06 09:49] LABS: Magnesium 1.6 mg/dL (1.6-2.3)
[2023-08-06] MEDS: MECLIZINE HCL 25 MG TABLET PO (09:54)
[2023-08-06 09:56] LABS: INR 1.1; Prothrombin Time 14.3 Seconds (11.1-14.7)
[2023-08-06 09:57] LABS: Partial Thromboplastin Time 28.4 SECONDS (22.3-36.8)
[2023-08-06 10:00] LABS: D Dimer 0.98 ug/mL (<0.48)
[2023-08-06 10:01] LABS: Troponin I < 0.012 ng/mL (0.000-0.034)
[2023-08-06] MEDS: METOPROLOL TARTRATE INJ 5 MG/5 ML VIAL IV PUSH (10:32)
[2023-08-06] MEDS: MAGNESIUM SULF 1 GM/D5W 100 ML 1 GM/100 ML BAG IVPB (10:32)
--- NOTE | 2023-08-06 11:25 | ECG_ITS ---
Measurements Intervals [place] Rate: 85 P: [place]: 0 QRS: 51 QRSD: 87 T: 53 QT: 322 QTc: 384 Interpretive Statements ATRIAL FIBRILLATION WITH NORMAL VENTRICULAR RESPONSE ST ELEVATION IN ANTEROLAT/INF LEADS- PROBABLY EARLY REPOLARIZATION ABNORMAL ECG COMPARED TO ECG 08/06/2023 08:58:37 ATRIAL FIBRILLATION NOW PRESENT Electronically Signed On 08-06-2023 11:52:29 LEAF COVERER by Patel Richard D.O.
[2023-08-06] MEDS: NITROGLYCERIN SL 0.4 MG TABLET SUBLINGUAL (12:13)
[2023-08-06 12:39] LABS: Troponin I < 0.012 ng/mL (0.000-0.034)
[2023-08-06 15:29] LABS: Troponin I < 0.012 ng/mL (0.000-0.034)
--- NOTE | 2023-08-06 17:02 | PM.IMHP ---
H&P: HPI History of Present Illness Date/Time: 08/06/23 17:02 Chief Complaint: patient is a 63-year-old male with a PMHX of, dysphagia, essential HTN, GERD, hyperlipidemia who presented the ED with report of dizziness and fall.? Patient reported having 3 episodes of dizziness this morning, two which were mild and occurring with bending over. Narrative: Pt provides the following HPI. Patient reported having 3 episodes of dizziness this morning, two which were mild and occurring with bending over, and one that resulted with him losing his balance and striking his head against a chair causing injury to his nose. Pt states he was working on putting some rubber sealant in his home windows, while bending and reaching pt states he noticed he got dizzy, describing it as a head pedraza, he reported some visual disturbances during this episode, citing it felt like the room was spinning . He reports he had some nausea and vomiting with the first episode. Pt states he attempted to walk to his kitchen, he states this is when his episode got worse causing him to become off-balanced, pt reports He fell down with the chair, hitting his nose and face against a chair.? No LOC. Denied syncope.? He reports epistaxis after the fall, which has since resolved.?there is a Small laceration to bridge of nose observed. then brought him to the ED. Patient states he developed chest pain after the fall, which has since persisted.? Complains of pressure to his left lower chest.? Denies difficulty breathing. ? Denies current dizziness.? Denies continued vision change, focal weakness or numbness, nausea, vomiting. He denies any drug or alcohol abuse. Review of Systems Review of Systems: All systems reviewed & are unremarkable except as noted in HPI and below PMFSH Past Medical History Medical History Dysphagia Essential hypertension GERD (gastroesophageal reflux disease) Hyperlipidemia Surgical History Surgical History History of fusion of cervical spine C6-7 History of total knee replacement Family History Family History Father Acute myocardial infarction from massive [place] Mother Lung cancer Sibling Skin cancer Other Heart disease Social History Social History Smoking packs per day: 1 Smoking cigarettes per day: 20.0 Years smoked: 10 Smoking pack-years: 10.00 Smoking status: Former smoker Alcohol intake: current Drinks per week: 12 Alcohol use details: BEER Substance use: current Substance use type: marijuana Other substance usage details: Rarely Living arrangements: with family Occupation/Education: retired Gender identity (if verbalized by the patient): Male Spiritual care concerns: No Meds Home Medications and Allergies Home Medications Medication Instructions Recorded Confirmed Type lisinopril 20 mg tablet 20 mg PO DAILY #90 tabs 01/06/23 08/06/23 Rx meloxicam 15 mg tablet 15 mg PO DAILY #90 tabs 04/09/23 08/06/23 Rx omeprazole 40 mg capsule,delayed 40 mg PO DAILY #90 caps 04/09/23 08/06/23 Rx release rosuvastatin 20 mg tablet 20 mg PO DAILY #90 tabs 06/12/23 08/06/23 Rx ezetimibe 10 mg tablet 10 mg PO DAILY #90 tabs 07/28/23 08/06/23 Rx cholecalciferol (vitamin D3) 25 1,000 unit PO DAILY 08/06/23 08/06/23 History mcg (1,000 unit) tablet Allergies Allergy/AdvReac Type Severity Reaction Status Date / Time Bumble Bee Allergy Intermediate Swelling Uncoded 07/07/23 09:50 Vital Signs Vital Signs - 24 hr 08/06/23 08:53 08/06/23 08:56 08/06/23 08:54 Temperature Pulse Rate 140 H 140 H 140 H Respiratory Rate Blood Pressure 126/105 H 123/91 H 130/90 Pulse Oximetry 08/06/23 08:54 08/06/23 08:55 08/06/23 08:56 Temperature Pulse
--- NOTE | 2023-08-06 18:08 | ADMGEN ---
This patient, Elpidio Delgadillo, was admitted to IMU Room 201-01. Patient/family oriented to hospital policies and general routines including ID bracelet, bed and alarms, visiting hours, pain management, procedures, bathroom and other care routines, personal items, smoking policy, room service/diet, and visiting hours. Information on how to activate the Rapid Response Team has been discussed. Patient/Family are encouraged to report perceived risks to care and to ask questions if they do not understand what they are told or what they should do.
--- NOTE | 2023-08-06 18:15 | ECG_ITS ---
Measurements Intervals [place] Rate: 72 P: 55 WI: 193 QRS: 46 QRSD: 88 T: 56 QT: 358 QTc: 393 Interpretive Statements SINUS RHYTHM VOLTAGE CRITERIA FOR LVH ST ELEVATION IN ANTEROLAT/INF LEADS- PROBABLY EARLY REPOLARIZATION BORDERLINE ECG COMPARED TO ECG 08/06/2023 11:40:49 SINUS RHYTHM NOW PRESENT Electronically Signed On 08-06-2023 19:06:23 BENCH PATTERNMAKER METAL by Patel Richard D.O.
[2023-08-06] MEDS: ENOXAPARIN 40 MG/0.4 ML SYRINGE SUB-Q (18:34)
[2023-08-06 19:43] LABS: Cholesterol 134 mg/dL (0-200); HDL Direct 43 mg/dL; Triglycerides 59 mg/dL (<150)
[2023-08-06 19:55] LABS: LDL Cholesterol Direct 78 mg/dL
[2023-08-07] VITALS (11 sets, daily range): BP systolic 110–146; BP diastolic 67–88; PULSE 62–76; RESP 16–20; TEMP 36.9–37.4; O2SAT 97–99
[2023-08-07 01:03] LABS: Troponin I < 0.012 ng/mL (0.000-0.034)
[2023-08-07 05:02] LABS: Basophils Percent Auto 0.4 % (0.2-1.2); Eosinophils Absolute Auto 0.1 K/mm3 (0-0.3); Eosinophils Percent Auto 2.5 % (0-4.4); Hematocrit 41.1 % (42.0-52.0); Hemoglobin 13.1 g/dL (14.0-18.0); Immature Granulocyte Absolute 0.02 K/mm3 (0.00-0.031); Immature Granulocyte Percent A 0.4 % (0-0.5); Lymphocytes Absolute Auto 1.34 K/mm3 (0.9-3.2); Lymphocytes Percent Auto 25.7 % (18.3-44.2); Mean Corpuscular HGB Conc 31.9 g/dl (32-36); Mean Corpuscular Hemoglobin 29.2 pg (26-34); Mean Corpuscular Volume 91.7 fl (80-100); Mean Platelet Volume 9.9 fl (7.4-10.4); Monocytes Absolute Auto 0.5 K/mm3 (0.1-0.6); Neutrophils Absolute Auto 3.2 K/mm3 (1.3-6.7); Platelet Count Result 220 k/mm3 (150-375); Red Blood Count 4.48 M/mm3 (4.6-6.20); Red Cell Distribution Width 13.5 % (11.5-14.5); White Blood Count 5.2 K/mm3 (4.5-10.0)
[2023-08-07 05:12] LABS: Alanine Aminotransferase 40 U/L (6-50); Albumin Level 3.9 g/dL (3.5-5.1); Alkaline Phosphatase 57 U/L (38-126); Anion Gap 7 mmol/L (8-16); Aspartate Amino Transferase 32 U/L (17-59); Bilirubin,Total 0.5 mg/dL (0.2-1.3); Blood Urea Nitrogen 12 mg/dL (9-20); Calcium 9.1 mg/dL (8.4-10.2); Carbon Dioxide 28 mmol/L (22-30); Chloride 104 mmol/L (98-107); Estimated CRCL calculation 124 ml/min; Estimated Glomerular Filt Rate > 60; Glucose 94 mg/dL (65-110); Sodium 139 mmol/L (137-145)
[2023-08-07] MEDS: ROSUVASTATIN 10 MG TABLET 20 MG PO (08:24)
[2023-08-07] MEDS: CHOLECALCIFEROL 1,000 UNITS TABLET 1000 UNITS PO (08:24)
[2023-08-07] MEDS: EZETIMIBE 10 MG TABLET PO (08:24)
[2023-08-07] MEDS: MELOXICAM 7.5 MG TABLET 15 MG PO (08:24)
[2023-08-07] MEDS: lisinopriL 20 MG TABLET PO (08:24)
[2023-08-07] MEDS: PANTOPRAZOLE 40 MG TABLET PO (08:25)
[2023-08-07] MEDS: ASPIRIN 81 MG CHEWABLE TABLET PO (08:25)
--- NOTE | 2023-08-07 13:07 | PM.DS ---
DS: Admitting Diagnosis Discharge Date 08/07/2023 Admitting Diagnosis New onset AFib with RVR DS: Discharge Diagnosis Discharge Diagnosis (1) Fracture of maxilla: Qualifiers: Encounter type: initial encounter Fracture type: closed Laterality: unspecified laterality Qualified Code(s): S02.401A - Maxillary fracture, unspecified side, initial encounter for closed fracture Code(s): S02.401A - Maxillary fracture, unspecified side, initial encounter for closed fracture Status: Acute (2) Dizziness: Code(s): R42 - Dizziness and giddiness Status: Acute (3) Atrial fibrillation: Qualifiers: Atrial fibrillation type: paroxysmal Qualified Code(s): I48.0 - Paroxysmal atrial fibrillation Code(s): I48.91 - Unspecified atrial fibrillation Status: Acute (4) Laceration of nose: Qualifiers: Encounter type: initial encounter Qualified Code(s): S01.21XA - Laceration without foreign body of nose, initial encounter Code(s): S01.21XA - Laceration without foreign body of nose, initial encounter Status: Acute (5) Fracture of nasal bone: Qualifiers: Encounter type: initial encounter Fracture type: closed Qualified Code(s): S02.2XXA - Fracture of nasal bones, initial encounter for closed fracture Code(s): S02.2XXA - Fracture of nasal bones, initial encounter for closed fracture Status: Acute (6) Fracture of nasal septum: Qualifiers: Encounter type: initial encounter Fracture type: closed Qualified Code(s): S02.2XXA - Fracture of nasal bones, initial encounter for closed fracture Code(s): S02.2XXA - Fracture of nasal bones, initial encounter for closed fracture Status: Acute (7) Moderate aortic stenosis: Code(s): I35.0 - Nonrheumatic aortic (valve) stenosis Status: Acute DS: Summary Hospital Course Hospital Course: patient is a 63-year-old male with a PMHX of,? dysphagia, essential HTN, GERD, hyperlipidemia who presented the ED with report of dizziness and fall.? Patient reported having 3 episodes of dizziness this morning, two which were mild and occurring with bending over. Narrative: Pt provides the following HPI. ?Patient reported having 3 episodes of dizziness this morning, two which were mild and occurring with bending over, and one that resulted with him losing his balance and striking his head against a chair causing injury to his nose. Pt states he was working on putting some rubber sealant in his home windows, while bending and reaching pt states he noticed he got dizzy, describing it as a head pedraza, he reported some visual disturbances during this episode, citing it felt like the room was spinning . He reports he had some nausea and vomiting with the first episode. Pt states he attempted to walk to his kitchen, he states this is when his episode got worse causing him to become off-balanced, pt reports He fell down with the chair, hitting his nose and face against a chair.? No LOC. Denied syncope.? He reports epistaxis after the fall, which has since resolved.?there is a? Small laceration to bridge of nose observed.? then brought him to the ED in the emergency room patient noted to be in AFib with a rapid ventricular rate patient going to metoprolol IV and converted back to sinus rhythm cardiology was consultedl. Patient does have a nasal septum and ridge fracture from the fall which patient will follow-up with ENT as an outpatient. Patient seen by Cardiology no need for any anticoagulation patient going home on metoprolol 12.5 twice a day. Patient will follow-up with the primary care physician and Cardiology as an outpatient in 1 week Time Spent with Patient Time attestation: Total time spent providing and/or coordinating discharge services: Exam Narrative: GENERAL: Well appearing, well-nourished, non-toxic, in no acute distress. HEAD: Normocephalic, atraumatic. EYES: PERRL/EOMI, conjun
--- NOTE | 2023-08-07 14:09 | PM.CNCAR ---
Assessment and Plan Assessment and plan (1) Paroxysmal atrial fibrillation: Code(s): I48.0 - Paroxysmal atrial fibrillation Status: Acute Assessment and Plan: Documented new transient diagnosis of atrial fibrillation asymptomatic heart rate reasonably controlled converted to sinus rhythm spontaneously maintain subsequently. CHADS2 Vasc score 1 for hypertension. Aspirin 81 mg daily acceptable. Once he turns 64 explained in detail systemic anticoagulation advised as his CHADS2 Vasc score will then be 2 as he would be a good further elevated risk for embolic stroke related to atrial fibrillation and/or atrial flutter. Patient verbalized understanding and agreed with plan of care. All questions answered patient and his 's satisfaction. We discussed management options with medications, aspirin versus systemic anticoagulation, bleeding risk and other complications. We discussed concern for bradycardia and or recurrence of atrial fibrillation/flutter in the future in general. As such will initiate metoprolol tartrate 12.5 mg twice daily as tolerated to help reduce recurrence risk. Patient verbalized understanding. Outpatient mold maker plaster advised and follow-up with me in the office within the next 4 weeks. Notify the office with any concerns. Ambulate with caution. Patient has maintained sinus rhythm and is asymptomatic in this regard. His arrhythmias were not the primary explanation for his presentation as he clearly describes a vertigo sensation causing his fall without loss of consciousness. At presentation he was feeling rather well and was noted be in atrial flutter with RVR (2) Paroxysmal atrial flutter: Code(s): I48.92 - Unspecified atrial flutter Status: Acute Assessment and Plan: Initial Atrial flutter RVR 2:1 AVB been atrial fibrillation now sinus rhythm. As above, aspirin 81 mg daily, metoprolol tartrate 12.5 mg twice daily. Patient counseled regarding bleeding risk with aspirin and in particular risk for GI complications with concomitant meloxicam. He does not take his medication concomitant monitor black or tarry stools and bright red blood. Prefer to minimize other NSAIDs if possible. (3) Hypertension: Code(s): I10 - Essential (primary) hypertension Status: Acute Assessment and Plan: Continue lisinopril 20 mg daily. BP reasonably controlled. Patient was not orthostatic as documented. (4) Aortic stenosis: Code(s): I35.0 - Nonrheumatic aortic (valve) stenosis Status: Acute Assessment and Plan: Otob-hp-[id number] severity of aortic stenosis asymptomatic. Exam suggest more mild calculated aortic valve area 1.2 centimeters squared with peak velocity 2.8 with mean gradient suggestive of mild. Clinical observation moving 4. Discussed natural history of progression and associated symptoms in the need for ongoing discussion an echocardiogram as appropriate moving for. Patient verbalized understanding. All questions answered to his satisfaction. (5) Vertigo: Code(s): R42 - Dizziness and giddiness Status: Acute Assessment and Plan: As above, defer to primary service. Symptoms resolved at this time. He is aware risk for recurrence. He is to remain hydrated nonetheless rise slowly from seated position to avoid risk for falls and injuries. Follow-up with primary care physician in this regard. Extensive workup including carotid Dopplers which were unremarkable for significant or hemodynamically significant stenosis, CT angiogram of the chest without infiltrate or pulmonary embolism a chest x-ray unremarkable, head CT without intracerebral hemorrhage or acute stroke. Defer further evaluation management per primary service. History of Present Illness History of Present Illness Consult date/time: Date of service: 08/07/23 14:09 Requesting physician: Tony Robert MD Consult reason: atrial fibrillation Reason For Visit: cp,dizziness,new ons
== END 2023-08-07 14:15 | disposition home or self-care (01) ==
LOC: ANHED 09:16 → ANHIMU 15:08
PROVIDERS: Emergency Medicine; Nurse Practitioner; Admitting Provider Internal Medicine; Emergency Provider Physician Assistant; PCP Family Medicine Adolescent Medicine; Visit Provider Internal Medicine
DX: S02.2XXA Fracture of nasal bones, initial encounter for closed fracture (principal); S02.401A Maxillary fracture, unspecified side, initial encounter for closed fracture; W18.39XA Other fall on same level, initial encounter; Y92.000 Kitchen of unspecified non-institutional (private) residence as the place of occurrence of the external cause; S01.21XA Laceration without foreign body of nose, initial encounter; R42 Dizziness and giddiness; I35.0 Nonrheumatic aortic (valve) stenosis; I48.92 Unspecified atrial flutter; I48.91 Unspecified atrial fibrillation; R07.9 Chest pain, unspecified; R00.0 Tachycardia, unspecified; I10 Essential (primary) hypertension; R79.1 Abnormal coagulation profile; K21.9 Gastro-esophageal reflux disease without esophagitis; E78.5 Hyperlipidemia, unspecified; Z87.891 Personal history of nicotine dependence; F12.90 Cannabis use, unspecified, uncomplicated; F10.90 Alcohol use, unspecified, uncomplicated; Z79.899 Other long term (current) drug therapy
CPT/HCPCS: 36415; 70450; 70486; 71046; 71275; 72125; 80053; 80061; 83735; 84484; 85025; 85380; 85610; 85730; 93005; 93880; 96361; 96365; 96372; 96375; 99285; A9270; G0378; J1650; J3475; J7030; Q9967

== ENCOUNTER 2024-11-09 00:43 | Day surgery (SDC) | payer MEDICARE, SELFPAY ==
[2024-11-01 13:47] VITALS: BMI 26.6
--- OUTSIDE RECORDS SUMMARY | 2024-11-09 00:46 | XMS_ITS | Clinical Summary ---
Author Organization [facility] [address] [facility] [address] Address [address] [place] [address] Care Team Providers Care Pc Tech Name Role Phone Festus Diego MD Primary Care Prov ider Allergies No known active allergies Medications ezetimibe (ZETIA) 10 mg tablet Take 1 tablet (10 mg total) by mouth daily 07/28/2023 Active lisinopriL (PRINIVIL,ZESTR IL) 20 mg tablet Take 1 tablet (20 mg total) by mouth daily 12/15/2015 Active omeprazole (PriLOSEC) 40 mg capsule Take 1 capsule (40 mg total) by mouth daily 05/30/2023 Active meloxicam (MOBIC) 15 mg tablet Take 1 tablet (15 mg total) by mouth as needed 06/20/2023 Active rosuvastatin (CRESTOR) 20 mg tablet Take 1 tablet (20 mg total) by mouth daily 06/12/2023 Active metoprolol tartrate (LOPRESSOR) 25 mg immediate release tablet Take 1/2 (one-half) tablet by mouth twice daily 90 tablet 3 08/02/2024 Active apixaban (ELIQUIS) 5 mg tablet Take 1 tablet (5 mg total) by mouth 2 (two) times a day 180 tablet 3 08/25/2024 Active Active Problems Problem Noted Date Diagnosed Date Anticoagulation management encounter 06/30/2024 Primary hypertension 11/13/2023 Paroxysmal atrial fibrillation 11/13/2023 Mixed hyperlipidemia 11/13/2023 Encounters Date Type Department Care Team Description 08/23/2024 Telephone [facility] Cardiology [address] [place] [address] Livia Chan MD from Last 3 Months Surgical History Surgery Date Site/Laterality Comments REPLACEMENT TOTAL KNEE Left NECK SURGERY fusion KNEE ARTHROSCOPY W/ LATERAL RELEASE JOINT REPLACEMENT Medical History Medical History Date Comments Hypertension Heart murmur Hyperlipidemia Arthritis Family History Medical History Relation Name Comments Heart attack Father Stephan Heart disease Father Stephan Hypertension Father Stephan Cancer Mother [place] Obesity Mother [place] Relation Name Status Comments Brother Alive Father Stephan Alive Mother [place] Alive Sister Alive Social History Tobacco Use Types Packs/Day Years Used Date Smoking Tobacco: Never Smokeless Tobacco: Never Sex and Gender Information Value Date Recorded Sex Assigned at Not on file Legal Sex Male 10:32 PM ENGRAVER COPPERPLATE Gender Identity Male 06/23/2024 6:56 AM ENGRAVER COPPERPLATE Sexual Orientation Straight 06/23/2024 6: 56 AM ENGRAVER COPPERPLATE Obstetrics History Last Filed Vital Signs Vital Sign Reading Time Taken Comments Blood Pressure 108/68 06/30/2024 9:16 AM ENGRAVER COPPERPLATE Pulse 74 06/30/2024 9:16 AM ENGRAVER COPPERPLATE Temperature - - Respiratory Rate - - Oxygen Saturation 99% 06/30/2024 9:16 AM ENGRAVER COPPERPLATE Inhaled Oxygen Concentration - - Weight 84.8 kg (187 lb) 06/30/2024 9:16 AM ENGRAVER COPPERPLATE Height 175.3 cm (5' 9 ) 06/30/2024 9:16 AM ENGRAVER COPPERPLATE Body Mass Index 27.62 06/30/2024 9:16 AM ENGRAVER COPPERPLATE Plan of Treatment Health Maintenance Due Date Last Done Comments Colon Cancer Screening-Colonoscopy 1959 Depression Screening 1959 Fall Risk Assessment 1959 Hepatitis C Screening 1959 Prostate Cancer Screening-PSA 1959 Hepatitis B Screening 1977 Pneumococcal vaccine 65+ (1 of 1 - PCV) 2009 Covid-19 Vaccine (2023-2 5 season) 2024 04/18/2023, 04/02/2022, 10/23/2021, Additional history exists Influenza Vaccine (#1) 2024 3, 04/02/2022, 08/19/2021, Additional history exists Well Visit 65+ 2024 DTaP/Tdap/Td Vaccine (2 - Td or Tdap) 02/17/2031 02/17/2021 Zoster Vaccine Completed 04/10/2018, 02/09/2018 Insurance [employer] MEDICARE Care Teams Pc Tech Relationship Specialty Start Date End Date Festus Diego MD [address] [place] [address] PCP - General Family Medicine 08/07/23
--- OUTSIDE RECORDS SUMMARY | 2024-11-09 00:46 | XMS_ITS | CONTINUITY OF CARE DOCUMENT ---
Author Name santos graham Address Unknown Organization [facility] Address [address] [place] [address] Phone [phone] Care Team Providers Care Hospice Clinical Supervisor Name Role Phone santos graham Unavailable Unavailable
--- OUTSIDE RECORDS SUMMARY | 2024-11-09 00:46 | XMS_ITS | Clinical Summary ---
Author Organization [facility] Address [address] [place] [address] Phone Care Team Providers Care Sharepoint Specialist Name Role Phone Festus Diego MD Primary Care Provider [phone] Allergies No known active allergies Medications acamprosate (CAMPRAL) 333 mg Tablet, Delayed Release (E.C.) Take 666 mg by mouth 3 times daily . 6 Active lisinopril (PRINIVIL) 20 mg tablet 6 Active simvastatin (ZOCOR) 20 mg tablet 20 mg daily . 6 Active multivitamin (DAILY-BRYANT) tablet Take 1 Tablet by mouth daily. Active naproxen (NAPROSYN) 500 mg tablet 7 Active fluocinolone acetonide oil (DERMOTIC) 0.01 % Drops 7 Active hydrocortisone- acetic acid (VOSOL-HC) 1-2 % Drops 7 Active amoxicillin (AMOXIL) 500 mg capsule Take 2 capsules by mouth 1 hour prior to procedure and 1 capsule 6 hours after procedure. 3 Capsule 2 7 Active Active Problems No known active problems Immunizations Immunization Administration Dates Next Due Influenza Seasonal Unspecified Formulation IM Family History Medical History Relation Name Comments Cancer Other Heart Disease Other Relation Name Status Comments Other Social History Tobacco Use Types Packs/Day Years Used Date Smoking Tobacco: Former Cigarettes 0 07/27/1972 - 07/27/1987 Smokeless Tobacco: Never Alcohol Use Standard Drinks/Week Comments Yes 29 (1 standard drink = 0.6 oz pu re alcohol) Sex and Gender Information Value Date Recorded Sex Assigned at Not on file Legal Sex Male 8:49 AM CDT Gender Identity Not on file Sexual Orientation Not on file Last Filed Vital Signs Vital Sign Reading Time Taken Comments Blood Pressure 124/75 03/24/2016 11:31 AM CDT Pulse 70 03/24/2016 11:31 AM CDT Temperature 36.3 C (97.3 F) 01/16/2016 5:18 AM CDT Respiratory Rate 16 01/16/2016 5:18 AM CDT Oxygen Saturation 99% 01/16/2016 5:18 AM CDT Inhaled Oxygen Concentration - - Weight 79.4 kg (175 lb) 01/19/2017 3:47 PM CDT Height 175.3 cm (5' 9 ) 01/19/2017 3:47 PM CDT Body Mass Index 25.84 01/19/2017 3:47 PM CDT Plan of Treatment Health Maintenance Due Date Last Done Comments DTAP/TDAP/TD VACCINES (1 - Tdap) 1978 COLORECTAL SCREENING 2004 Colorectal Cancer Screening 2004 FIT-DNA Q 3 years 2004 FIT/FOBT Q 1 year 2004 Flex Sig/CT Colonography Q 5 years 2004 PNEUMOCOCCAL VACCINE 50+ YEARS (1 of 1 - PCV) 06/05/20 09 ZOSTER VACCINE (1 of 2) 2009 INFLUENZA VACCINE (#1) 2024 2015 RSV VACCINE (60+ or ) (1 - 1-dose 75+ series) 2034 Medical Devices Implanted Type Area Roentgenology Teacher Device Identifier Shelf Expiration Date Model / Serial / Lot Cement Ebro G-Hv 40g [id number] - [id number] Implanted:Qty: 1 on 01/14/2016 by Nadeem Khan MD at [facility] Cement Left: Knee [employer] [id number] 02/23/2017 [id number] / / [id number] Comp Tib Cocr Finned 79mm [id number] - [id number] Implanted:Qty: 1 on 01/14/2016 by Nadeem Khan MD at [facility] Knee Left: Knee [employer] [id number] 11/07/2025 [id number] / / [id number] Description:All Biomet recon knee components are processed on requisition,[id number]. Comp Fem Vngrd Cr Por Lt 75mm [id number] - [id number] Implanted:Qty: 1 on 01/14/2016 by Nadeem Khan MD at [facility] Knee Left: Knee [employer] 07/26/2022 [id number] / / [id number] Brng Tib Vngrd Epoly Cr Ep-[id number] - [id number] Implanted:Qty: 1 on 01/14/2016 by Nadeem Khan MD at [facility] Knee Left: Knee [employer] [id number] 08/07/2020 [id number] / / [id number] Insurance BCBS BLUE ACCESS/TRUE BLUE PPO Advance Directives For more information, please contact: [phone] * Full Code (Latest Code Status on File) Date Activated Date Inactivated Comments 01/14/2016 6:05 PM 01/16/2016 5:33 PM * Full Code Date Activated Date Inactivated Comments 01/14/2016 1:48 PM 01/14/2016 6:05 PM * Full Code Date Activated Date Inactivated Comments 01/14/2016 12:24 PM 01/14/2016 1:48 PM Care Teams Sharepoint Specialist Relationship Specialty Start Date End Date Festus Diego MD PCP - General Family Practice 12/27/15
--- OUTSIDE RECORDS SUMMARY | 2024-11-09 00:46 | XMS_ITS | Referral Summary ---
Author Organization [facility] [place] [place] [address] [facility] [address] Address [address] [place] [address] Care Team Providers Care Maintenance Analyst Name Role Phone Festus Diego MD Primary Care Prov ider Encounters Date Type Department Care Team Description 08/23/2024 Telephone [facility] Cardiology [address] [place] [address] Livia Chan MD from Last 3 Months Allergies No known active allergies Medications ezetimibe [...] Paroxysmal atrial fibrillation 11/13/2023 Mixed hyperlipidemia 11/13/2023 Social History Tobacco Use Types Packs/Day Years Used Date Smoking Tobacco: Never Smokeless Tobacco: Never Sex and Gender Information Value Date Recorded Sex Assigned at Not on file Legal Sex Male 10:32 PM CHANGE MANAGEMENT LEAD Gender Identity Male 06/23/2024 6:56 AM CHANGE MANAGEMENT LEAD Sexual Orientation Straight 06/23/2024 6: 56 AM CHANGE MANAGEMENT LEAD Last Filed Vital Signs Vital Sign Reading Time Taken Comments Blood Pressure 108/68 06/30/2024 9:16 AM CHANGE MANAGEMENT LEAD Pulse 74 06/30/2024 9:16 AM CHANGE MANAGEMENT LEAD Temperature - - Respiratory Rate - - Oxygen Saturation 99% 06/30/2024 9:16 AM CHANGE MANAGEMENT LEAD Inhaled Oxygen Concentration - - Weight 84.8 kg (187 lb) 06/30/2024 9:16 AM CHANGE MANAGEMENT LEAD Height 175.3 cm (5' 9 ) 06/30/2024 9:16 AM CHANGE MANAGEMENT LEAD Body Mass Index 27.62 06/30/2024 9:16 AM CHANGE MANAGEMENT LEAD Plan of Treatment Not on file Insurance [facility] MEDIC[facility] Address: [facility] [id number] [place] [address] Care Teams Maintenance Analyst Relationship Specialty Start Date End Date Festus Diego MD [address] [place] [address] PCP - General Family Medicine 08/07/23
[2024-11-09 06:17] VITALS: BP 120/73; PULSE 61; RESP 18; TEMP 36.2; O2SAT 100; BMI 27.3
[2024-11-09] MEDS: LACTATED RINGERS 1,000 ML 150 ML IV CONT (06:28)
--- NOTE | 2024-11-09 07:21 | P.PNAN_ITS ---
Anes - Initial Pre Proc Eval Procedure: Operation Date: 11/09/24 07:30 Proposed Procedures p Screening Colonoscopy - Paul Beyer MD Date/Time: 11/09/24 07:21 Surgeon: Paul Beyer MD Pre Op Diagnosis: screening colon Patient Data Age: 64 Gender: M Height: 1.75 m Weight: 83.9 kg Last Vital Signs Temp 36.2 C L 11/09/24 06:17 Pulse 61 11/09/24 06:17 Resp 18 11/09/24 06:17 BP 120/73 11/09/24 06:17 Pulse Ox 100 11/09/24 06:17 O2 Del Method Room Air 11/09/24 06:17 Allergies Allergy/AdvReac Type Severity Reaction Status Date / Time Bumble Bee Allergy Intermediate Swelling Uncoded 11/09/24 06:13 Home Medications ?Medication ?Instructions ?Recorded ?Confirmed ?Type cholecalciferol (vitamin D3) 25 1,000 unit PO DAILY 08/06/23 11/01/24 History mcg (1,000 unit) tablet metoprolol tartrate 25 mg tablet 12.5 mg (1/2 x 25 mg) PO BID 30 08/07/23 11/09/24 Rx days #30 tabs omeprazole 40 mg capsule,delayed 40 mg PO DAILY #90 caps 09/10/23 11/01/24 Rx release lisinopril 20 mg tablet See Rx Instructions .Route 10/23/23 11/01/24 Rx .COMPLEX #90 tabs rosuvastatin 20 mg tablet See Rx Instructions .Route 10/23/23 11/01/24 Rx .COMPLEX #90 tabs ezetimibe 10 mg tablet See Rx Instructions .Route 10/03/24 11/01/24 Rx .COMPLEX #90 tabs meloxicam 15 mg tablet See Rx Instructions .Route 10/03/24 11/01/24 Rx .COMPLEX #90 tabs Patient hx anesthesia problems: none Family hx anesthesia problems: none Results Review: All pre-operative results and documents have been reviewed as part of the pre- operative evaluation. [facility] Past Medical History Medical History GERD (gastroesophageal reflux disease) Dysphagia Essential hypertension Surgical History Surgical History History of total knee replacement History of fusion of cervical spine (2005) C5-6,C6-7 Family History Family History Father Acute myocardial infarction from massive [place] Mother Lung cancer Sibling Skin cancer Other Heart disease Social History Social History Smoking packs per day: 1 Smoking cigarettes per day: 20.0 Years smoked: 10 Smoking pack-years: 10.00 Smoking status: Never smoker Alcohol intake: current Drinks per week: 12 Alcohol use details: BEER Substance use: current Substance use type: marijuana Other substance usage details: Edibles Do You Feel Safe in your Home?: Yes Lack of Transportation: No Lack of Food: Never True Current Housing: I Have Housing Concerned About Future Housing: No Difficulty Paying Gas/Electric Bills: No Difficulty Paying for Meds: No Currently Unemployed: No Education: High School Diploma/GED Difficulty w/ Childcare or Family Care: No Living arrangements: with family Additional living arrangements comments: with sp Occupation/Education: retired Gender identity (if verbalized by the patient): Male Spiritual care concerns: No Anes - Eval Final PreProcedure Day of Procedure 11/09/24 07:21 Patient weight: overweight Heart: regular rate and rhythm Lungs: clear to auscultation Airway: Mallampati scale class III Neurological: alert and oriented Last oral intake: >/= 8 hours ASA classification: III Emergent: no Anesthetic plan: proceed Anesthesia type and monitoring: general GIVS and standard monitoring Results Review: All pre-operative results and documents have been reviewed as part of the pre- operative evaluation. Informed Consent: The patient's anesthetic plan and its attendant risks and benefits were discussed with the patient/family/POA. Questions were solicited and answers provided to the satisfaction of the patient/family/POA.
--- NOTE | 2024-11-09 07:28 | PM.IMHP ---
H&P: HPI History of Present Illness Date/Time: 11/09/24 07:28 Chief Complaint: Screening colonoscopy Narrative: This is the patient's 2nd colonoscopy. There are no GI symptoms and there is no family history of colorectal cancer. Review of Systems Review of Systems: All systems reviewed & are unremarkable except as noted in HPI and below PMFSH Past Medical History Medical History GERD (gastroesophageal reflux disease) Dysphagia Essential hypertension Surgical History Surgical History History of total knee replacement History of fusion of cervical spine (2005) C5-6,C6-7 Family History Family History Father Acute myocardial infarction from massive [place] Mother Lung cancer Sibling Skin cancer Other Heart disease Social History Social History Smoking packs per day: 1 Smoking cigarettes per day: 20.0 Years smoked: 10 Smoking pack-years: 10.00 Smoking status: Never smoker Alcohol intake: current Drinks per week: 12 Alcohol use details: BEER Substance use: current Substance use type: marijuana Other substance usage details: Edibles Do You Feel Safe in your Home?: Yes Lack of Transportation: No Lack of Food: Never True Current Housing: I Have Housing Concerned About Future Housing: No Difficulty Paying Gas/Electric Bills: No Difficulty Paying for Meds: No Currently Unemployed: No Education: High School Diploma/GED Difficulty w/ Childcare or Family Care: No Living arrangements: with family Additional living arrangements comments: with sp Occupation/Education: retired Gender identity (if verbalized by the patient): Male Spiritual care concerns: No Meds Home Medications and Allergies Home Medications ?Medication ?Instructions ?Recorded ?Confirmed ?Type cholecalciferol (vitamin D3) 25 1,000 unit PO DAILY 08/06/23 11/01/24 History mcg (1,000 unit) tablet metoprolol tartrate 25 mg tablet 12.5 mg (1/2 x 25 mg) PO BID 30 08/07/23 11/09/24 Rx days #30 tabs omeprazole 40 mg capsule,delayed 40 mg PO DAILY #90 caps 09/10/23 11/01/24 Rx release lisinopril 20 mg tablet See Rx Instructions .Route 10/23/23 11/01/24 Rx .COMPLEX #90 tabs rosuvastatin 20 mg tablet See Rx Instructions .Route 10/23/23 11/01/24 Rx .COMPLEX #90 tabs ezetimibe 10 mg tablet See Rx Instructions .Route 10/03/24 11/01/24 Rx .COMPLEX #90 tabs meloxicam 15 mg tablet See Rx Instructions .Route 10/03/24 11/01/24 Rx .COMPLEX #90 tabs Allergies Allergy/AdvReac Type Severity Reaction Status Date / Time Bumble Bee Allergy Intermediate Swelling Uncoded 11/09/24 06:13 Vital Signs Vital Signs - 24 hr 11/09/24 06:17 Temperature 97.2 F L Pulse Rate 61 Respiratory Rate 18 Blood Pressure 120/73 Pulse Oximetry 100 Oxygen Delivery Room Air Exam Const: General: cooperative and healthy appearing Resp: Effort & Inspection: normal respiratory effort and able to speak in complete sentences Auscultation: clear to auscultation bilaterally Cardio: Rate: regular rate Rhythm: regular rhythm GI: Inspection: normal to inspection GI Palp: No No hepatosplenomegaly present Auscultation: normal bowel sounds Rectal Exam: deferred Skin: General skin exam: normal color Psych: Appearance: grossly normal Mental Status: mental status grossly normal Assessment and Plan Assessment and plan (1) Encounter for screening colonoscopy: Code(s): Z12.11 - Encounter for screening for malignant neoplasm of colon Status: Acute Assessment and Plan: The patient is deemed a good candidate for the procedure. Consent signed. Will proceed.
[2024-11-09 07:42] VITALS: BP 112/75; PULSE 60; RESP 20; O2SAT 100
[2024-11-09 07:52] VITALS: BP 115/79; PULSE 56; RESP 15; O2SAT 100
[2024-11-09 08:02] VITALS: BP 130/81; PULSE 57; RESP 19; O2SAT 100
== END 2024-11-09 08:09 | disposition home or self-care (01) ==
PROVIDERS: PCP Family Medicine Adolescent Medicine; Referring Provider Family Medicine Adolescent Medicine; Visit Provider Internal Medicine Gastroenterology
PROC: 0DJD8ZZ Inspection of Lower Intestinal Tract, Via Natural or Artificial Opening Endoscopic (ICD-10-PCS; CPT 45378; principal; 2024-11-09 07:30)
DX: Z12.11 Encounter for screening for malignant neoplasm of colon (principal); K21.9 Gastro-esophageal reflux disease without esophagitis; I10 Essential (primary) hypertension; F12.90 Cannabis use, unspecified, uncomplicated; Z98.890 Other specified postprocedural states; Z98.1 Arthrodesis status; Z80.1 Family history of malignant neoplasm of trachea, bronchus and lung; Z84.0 Family history of diseases of the skin and subcutaneous tissue; Z82.49 Family history of ischemic heart disease and other diseases of the circulatory system
CPT/HCPCS: G0105; J2003; J2704; J7120